=== PATIENT | male | born 1990 | race Two or more races ===

== ENCOUNTER 2017-07-09 23:17 | Emergency (ER) | payer BC, OTHER ==
[~2017-07-09] VITALS: Ht 175.3 cm; Wt 142.9 kg
[2017-07-09 23:44] VITALS: BP 151/79
== END 2017-07-10 00:15 | disposition home or self-care (01) ==
LOC: ER 23:18
DX: T23.202A Burn of second degree of left hand, unspecified site, initial encounter (principal); X19.XXXA Contact with other heat and hot substances, initial encounter; Y93.G3 Activity, cooking and baking; Y92.090 Kitchen in other non-institutional residence as the place of occurrence of the external cause; Y99.8 Other external cause status
CPT/HCPCS: 90715; A4606; Z7610